=== PATIENT | male | born 1945 | race Caucasian/White ===

== ENCOUNTER 2021-10-07 09:25 | Outpatient (CLI) | payer MEDICARE, OTHER, SELFPAY ==
--- NOTE | ~2021-10-07 | CT_ITS ---
EXAMINATION: CT abdomen pelvis wo con EXAM DATE: 10/07/2021 09:48 INDICATION: Gross hematuria. Urinary frequency, TECHNIQUE: Spiral CT of the abdomen and pelvis was performed without contrast. Axial, coronal and s agittal images of the abdomen and pelvis were reviewed. The dose-length product (DLP) for this exami [facility] was 1320.70 mGy-cm. The exposure was tailored according to patient size (auto mA exposure con trol), and iterative reconstruction (ASIR) was used as additional dose reduction technique. There is no prior study for comparison. FINDINGS: There is a right liver lobe mass anteriorly causing lobular contour distortion measuring ab out 4 cm; recommend liver MRI examination without and with contrast. Adrenal glands, pancreas, spleen are unremarkable. Gallbladder is unremarkable. No biliary obstruction. Several renal cysts, larges t on the left measuring 5 cm. There are 2 small exophytic right renal lesions which are hyperdense an d most likely hemorrhagic cysts but these can also be evaluated on the MRI exam. There is moderate p rostatomegaly. The bladder is unremarkable. There is no retroperitoneal or pelvic lymphadenopathy. There is mild scattered arteriosclerotic disease. There are no findings to suggest appendicitis. The stomach and small bowel are unremarkable. There is expected amount of colonic stool. No free intraperitoneal gas. Small pericardial effusion. Hea rt normal in size. The lung bases are unremarkable. There are no osteoblastic or osteolytic lesions identified. There is right hip replacement. IMPRESSION: 1. Right liver lobe 4 cm mass, differential diagnosis including both benign and malignant possibilit ies. Recommend abdomen MRI examination without and with contrast. 2. Small right renal lesions likely hemorrhagic cyst but solid mass not excludable. Could be evaluat ed with the same MRI. 3. Moderate prostatomegaly. Reviewed, dictated and finalized at location G. IMPRESSION: 1. Right liver lobe 4 cm mass, differential diagnosis including both benign an d malignant possibilities. Recommend abdomen MRI examination without and with c ontrast. 2. Small right renal lesions likely hemorrhagic cyst but solid mass not exclud able. Could be evaluated with the same MRI. 3. Moderate prostatomegaly.
== END 2021-10-07 09:26 | disposition home or self-care (01) ==
PROVIDERS: PCP Internal Medicine; Visit Provider Urology
DX: R31.0 Gross hematuria (principal); N40.0 Benign prostatic hyperplasia without lower urinary tract symptoms; R16.0 Hepatomegaly, not elsewhere classified
CPT/HCPCS: 74176

== ENCOUNTER 2021-10-23 10:17 | Outpatient (CLI) | payer MEDICARE, OTHER, SELFPAY ==
--- NOTE | ~2021-10-23 | MR_ITS ---
EXAMINATION: MR abdomen wo/w con DATE: 10/23/2021 12:48 INDICATION: Right renal neoplasm of uncertain behavior. TECHNIQUE: Magnetic resonance imaging (MRI) of the abdomen was performed without and with 20 mL Multi laney intravenous contrast. Sequences included coronal T2-weighted SS-FSE, coronal and axial FS 2D-F IESTA, axial STIR FSE, axial T2-weighted SS-FSE, axial T2-weighted FS SS-FSE, axial diffusion-weighte d SE, axial dual-echo T1-weighted FSPGR, and axial and coronal T1-weighted LAVA. Postcontrast axial T 1-weighted LAVA images were obtained in a time course. Postcontrast coronal T1-weighted LAVA images w ere obtained. COMPARISON: CT abdomen and pelvis dated 10/07/2021 FINDINGS: Heart size is normal. No pericardial or pleural effusion. Multiple T2 hyperintense nonenhancing hepat ic cysts, the largest at the dome of the liver measuring 6.7 x 5.0 x 6.0 cm. 4.4 x 2.7 cm hemangioma at the posterior margin of segment 6 of the liver demonstrating characteristic peripheral discontiguo us puddling of contrast isointense to the aorta which fills in on delayed imaging. Gallbladder, splee n, pancreas and bilateral adrenal glands are normal. There are multiple bilateral T2 hyperintense non enhancing renal cysts, the largest at the lower pole of the left kidney measuring 5.7 cm in maximal d iameter. There are 3 additional T2 hypointense, T1 hyperintense nonenhancing proteinaceous/hemorrhagi c cysts at the periphery of the right kidney measuring 8 mm, 5 mm and 3 mm. Visualized portions of th e bowels are unremarkable. No pathologically enlarged abdominal lymphadenopathy. Mild lumbar dextrocu rvature with severe and fibrofatty degenerative endplate changes. Metallic magnetic field artifact at the right hip consistent with prior total hip arthroplasty. Mild trabeculation of the bladder which could be related to chronic outlet obstruction from the incompletely visualized but enlarged prostate . IMPRESSION: 1. Multiple bilateral renal cysts including 3 subcentimeter proteinaceous/hemorrhagic cysts at the ri ght kidney including the 2 hyperdense lesions of concern on prior CT. 2. Multiple hepatic cysts as well as a 4.4 x 2.7 cm hemangioma at the posterior right hepatic lobe co rresponding to the lobular lesion of concern on prior CT. 3. Prostatomegaly. Reviewed, dictated and finalized at location B. IMPRESSION: 1. Multiple bilateral renal cysts including 3 subcentimeter proteinaceous/hemor rhagic cysts at the right kidney including the 2 hyperdense lesions of concern on prior CT. 2. Multiple hepatic cysts as well as a 4.4 x 2.7 cm hemangioma at the posterior right hepatic lobe corresponding to the lobular lesion of concern on prior CT. 3. Prostatomegaly.
[2021-10-23 10:54] LABS: Estimated Glomerular Filt Rate > 60
== END 2021-10-23 10:18 | disposition home or self-care (01) ==
PROVIDERS: PCP Internal Medicine; Visit Provider Urology
DX: N28.1 Cyst of kidney, acquired (principal); K76.89 Other specified diseases of liver; N40.0 Benign prostatic hyperplasia without lower urinary tract symptoms
CPT/HCPCS: 74183; A9577

== ENCOUNTER 2022-05-04 09:15 | Emergency (ER) | payer MEDICARE, OTHER, SELFPAY ==
[2022-05-04 09:28] VITALS: BP 148/73; PULSE 62; RESP 20; TEMP 36.7; O2SAT 96
--- NOTE | 2022-05-04 09:29 | ED.GENADULT ---
HPI - General Adult General Chief complaint: Unspecified Stated complaint: nasal pain Time Seen by Provider: 05/04/22 09:29 Mode of arrival: ambulatory Limitations: no limitations History of Present Illness HPI narrative: 76-year-old male presents concern for burning and itching on his nose and just inside of his nose. Reports it feels raw. He reports this has been going on for 4-5 weeks. He reports he is taking Zyrtec daily, using saline spray inside the nose and has started using Vaseline for comfort. He reports the Vaseline uses the symptoms slightly. He denies any epistaxis, sinus congestion, sinus drainage, sore throat, ear pain, cough, sneezing. He denies any swelling, tenderness, pain in or around the nose. He denies fever, body aches, chills, sweats. MD complaint: Nasal problem Related Data Home Medications Medication Instructions Recorded Confirmed meloxicam 15 mg tablet 15 mg PO DAILY 09/05/21 omega 6-bfa-uqk-fish oil 60 mg-90 1 cap PO DAILY 09/05/21 mg-500 mg capsule (Fish Oil) psyllium husk 3.4 gram/5.4 gram 1 tbsp PO DAILY 09/05/21 oral powder (Metamucil) vit C 250 mg-vit E 90 mg-zinc 40 1 tablet PO BID 03/20/22 mg-copper 1 na-lrggal-uaqkez capsule (PreserVision AREDS-2) finasteride 5 mg tablet mg 05/04/22 Allergies Allergy/AdvReac Type Severity Reaction Status Date / Time adhesive Allergy Mild Itching Verified 03/20/22 08:36 Review of Systems Review of Systems: CONSTITUTIONAL: Denies malaise, chills, sweats, or fever. EYES: Denies visual changes, redness, or discharge. ENT: Reports rhinorrhea, congestion, sinus pain, otalgia and sore throat. CARDIOVASCULAR: Denies chest pain, palpitations, or edema. RESPIRATORY: Reports cough. Denies dyspnea. GASTROINTESTINAL: Denies abdominal pain, nausea, vomiting, diarrhea SKIN: Reports redness, itchiness, raw skin on the nose and just inside the nose MUSCULOSKELETAL: Denies myalgia. NEUROLOGIC: Denies headache. All systems reviewed & are unremarkable except as noted in HPI and below PMFSH Past Medical History Medical History (Updated 05/04/22 @ 09:45 by Cortney Schafer NP) Allergies Anxiety Arthritis BPH (benign prostatic hyperplasia) Insomnia Surgical History Surgical History H/O spinal fusion History of right hip replacement Family History Family History Mother Thyroid disorder Social History Social History Smoking status: Never smoker Alcohol intake: former Substance use: never Additional occupation/education comments: [employer] Comments At time of signature, agree with nursing past medical, surgical, social and family history. There is no relevant family history pertinent to the presenting complaint Exam Narrative: GENERAL: Well-appearing, well-nourished, and in no acute distress. HEAD: Normocephalic, atraumatic. EYES: PERRLA, sclera clear, and EOMI. ENT: Nares clear, turbinates pink, no rhinorrhea or epistaxis. Mucous membranes moist. TM pearly jay with sharp light reflex bilaterally; no tragal tenderness. Oropharynx without erythema or lesions. Tonsils not enlarged and without exudate. NECK: Supple. No lymphadenopathy. CHEST: No respiratory distress. Clear to auscultation. No bony deformities, no asymmetry. Speaks in full sentences. HEART: Regular rate and rhythm. SKIN: Warm, dry. Mild erythema with excoriation noted on bilateral lower nares just inside the nares. No edema, induration, tenderness noted, no areas of fluctuation, no concern for soft tissue infection at this time NEURO: Alert and oriented x3. PSYCH: Normal mood and affect Course Course Emergency Course: Discussed possible causes of the symptoms with the patient. Given the extreme itchiness, Will try a course of antifungal cream. Advised the patient if his symptoms d
== END 2022-05-04 09:51 | disposition home or self-care (01) ==
PROVIDERS: Emergency Provider Nurse Practitioner; PCP Nurse Practitioner
DX: B35.8 Other dermatophytoses (principal); M19.90 Unspecified osteoarthritis, unspecified site; N40.0 Benign prostatic hyperplasia without lower urinary tract symptoms; Z96.641 Presence of right artificial hip joint
CPT/HCPCS: 99213; G0463

== ENCOUNTER 2022-06-08 12:17 | Outpatient (CLI) | payer MEDICARE, OTHER, SELFPAY ==
--- NOTE | ~2022-06-08 | US_ITS ---
US arterial ankle brachial ind INDICATION: Soft tissue disorders. Hypertension. TECHNIQUE: Segmental pressures and plethysmographic and Doppler waveforms of the brachial and lower e xtremity arteries were obtained. COMPARISON: None. FINDINGS: Right and left brachial artery pressures of 135 mm Hg and 135 mm Hg, respectively, are concordant (no rmal difference <= 30 mmHg). The right ankle-brachial index (MARIA VICTORIA) is 1.37 (normal >= 0.9-1.0). The right great toe-brachial index (TBI) is 0.59 (normal >= 0.60). The left MARIA VICTORIA is 1.33. The left TBI is 0.7. IMPRESSION: 1. Normal left ankle and toe brachial indices. 2: Normal right ankle-brachial index. Mildly decreased right toe brachial index, consistent with mild peripheral arterial disease.. Reviewed, dictated and finalized at location B. CT MAIL MANAGER IMPRESSION: 1. Normal left ankle and toe brachial indices. 2: Normal right ankle-brachial index. Mildly decreased right toe brachial index , consistent with mild peripheral arterial disease..
--- NOTE | 2022-06-08 12:31 | ECHO_ITS ---
Patient Info Name: Sid Dyson Age: 76 years : 1945 Gender: Male Ht: 72 in Wt: 220 lbs BSA: 2.27 m2 HR: 118 bpm BP: 141 / 75 mmHg Technical Quality: Good Exam Date: 06/08/2022 1:08 PM Exam Location: [facility] Patient Status: Outpatient Admit Date: 06/08/2022 Staff Ordering Physician: Robina John Equal Opportunity Assistant: Barbara Shah RDCS Attending Provider: Robina John Referring Physician: Dora MCMILLAN; Exam Type: CA echo doppler color flow Study Info Indications M79.89 - OTHER SOFT TISSUE DISORDERS Complete two-dimensional, color flow and Doppler transthoracic echocardiogram is performed. Summary 1. Complete two-dimensional, color flow and Doppler transthoracic echocardiogram is performed. 2. Left ventricular chamber dimension is normal. 3. Left ventricular systolic function is normal, estimated at 60-65%. 4. The left ventricular diastolic function is grade I diastolic dysfunction. 5. E/e' 8 is minimally elevated. 6. There is trace mitral valve regurgitation. 7. There is trace tricuspid valve regurgitation. 8. No pulmonary hypertension, estimated pulmonary arterial systolic pressure is 31 mmHg. 9. There is trace pulmonic regurgitation. Left Ventricle E/e' 8 is minimally elevated. Left ventricular chamber dimension is normal. Left ventricular systolic function is normal, estimated at 60-65%. The left ventricular diastolic function is grade I diastolic dysfunction. Right Ventricle Right ventricular chamber dimension is normal. Right ventricular systolic function is normal. Left Atria Left atrial chamber dimension is normal. Right Atria Right atrial chamber dimension is normal. Aortic Valve The aortic valve is trileaflet. There is no aortic valve stenosis. There is no aortic valve regurgitation. Pulmonic Valve There is trace pulmonic regurgitation. Mitral Valve There is no mitral valve stenosis. There is trace mitral valve regurgitation. Tricuspid Valve There is trace tricuspid valve regurgitation. No pulmonary hypertension, estimated pulmonary arterial systolic pressure is 31 mmHg. Pericardium/Pleural There is no pericardial effusion. Inferior Vena Cava Normal inferior vena cava with >50% collapse upon inspiration consistent with normal right atrial pressure, 5 mmHg. Aorta The aortic root size at the sinus of Valsalva is normal. Left Ventricular Outflow Tract Name Value Normal LVOT 2D LVOT Diameter 2.2 cm LVOT Doppler LVOT Peak Gradient 5 mmHg LVOT Mean Gradient 3 mmHg LVOT VTI 22 cm LVOT Stroke Volume 87 ml LVOT CO 18.4 l/min LVOT CI 8.1 l/min/m2 Pulmonic Valve Name Value Normal PV Doppler
== END 2022-06-08 12:18 | disposition home or self-care (01) ==
PROVIDERS: PCP Internal Medicine; Visit Provider Clinical Nurse Specialist
DX: Z01.818 Encounter for other preprocedural examination (principal); I10 Essential (primary) hypertension; M79.89 Other specified soft tissue disorders
CPT/HCPCS: 93306; 93922

== ENCOUNTER 2022-08-06 13:07 | Emergency (ER) | payer MEDICARE, OTHER, SELFPAY ==
[2022-08-06 13:36] VITALS: BP 141/80; PULSE 70; RESP 16; TEMP 36.9; O2SAT 97
--- NOTE | 2022-08-06 14:16 | ED.URI ---
HPI - URI/Sore Throat General Chief Complaint: Upper Respiratory Infection Stated Complaint: COUGH/HEADACHE/CONGESTION Time Seen by Provider: 08/06/22 13:40 Source: patient Mode of arrival: ambulatory Limitations: no limitations History of Present Illness HPI Narrative: Sid is a 76-year-old male patient presenting to the clinic today with complaints of cough, headache, and nasal congestion x2 days. He denies any fever but states he has had some slight chills. He is concerned that he may have an infection. MD elicited complaint: sore throat and nasal congestion Related Data Home Medications Medication Instructions Recorded Confirmed meloxicam 15 mg tablet 15 mg PO DAILY 09/05/21 omega 7-tkt-vhp-fish oil 60 mg-90 1 cap PO DAILY 09/05/21 mg-500 mg capsule (Fish Oil) psyllium husk 3.4 gram/5.4 gram 1 tbsp PO DAILY 09/05/21 oral powder (Metamucil) vit C 250 mg-vit E 90 mg-zinc 40 1 tablet PO BID 03/20/22 mg-copper 1 ua-zmgaqy-wzqzmu capsule (PreserVision AREDS-2) finasteride 5 mg tablet mg 05/04/22 Allergies Allergy/AdvReac Type Severity Reaction Status Date / Time adhesive Allergy Mild Itching Verified 06/05/22 08:54 Review of Systems Review of Systems: Pertinent positives per HPI. Patient denies any fever, rash, visual changes, dizziness, shortness of breath, chest pain, palpitations, nausea, vomiting, diarrhea, constipation, abdominal pain, or any urinary issues. PMFSH Past Medical History Medical History Allergies Anxiety Arthritis BPH (benign prostatic hyperplasia) Insomnia Surgical History Surgical History H/O spinal fusion History of right hip replacement Family History Family History Mother Thyroid disorder Social History Social History Smoking status: Never smoker Alcohol intake: former Substance use: never Lack of Transportation: No Lack of Food: Never True Current Housing: I Have Housing Concerned About Future Housing: No Difficulty Paying Gas/Electric Bills: No Difficulty Paying for Meds: No Currently Unemployed: No Education: Bachelor's Degree Difficulty w/ Childcare or Family Care: No Additional occupation/education comments: [employer] Comments At the time of my signature, I reviewed and agree with the nursing past medical, surgical, social, and family history. There is no relevant family history pertinent to the patient complaint. Exam Narrative: General: Well-developed, well nourished, in no apparent distress Head: Normocephalic, atraumatic Eyes: Pupils equally round and reactive to light bilaterally, EOM intact, sclera and conjunctive clear, no discharge, lids normal Ears: TMs intact and clear, ear canals clear, no drainage, grossly hearing normal. Nose: Nares patent, clear nasal discharge, mild inflammation, no sinus tenderness. Mouth: Oral pharynx without lesions or masses, good dentition, MMM. Postnasal drip Neck: Supple, trachea midline, no enlargement of anterior or posterior cervical nodes, no thyroid masses or goiter palpable. Cardio: Regular rate and rhythm, s1 and s2 normal, no murmur appreciated. Resp: Clear to auscultation bilaterally, no rhonchi, rales, wheezing or rubs Course Course Emergency Course: Portions of this record may have been created with voice recognition software. Level of Care: Express Care Visit Vital Signs Vital signs: Vital Signs Temperature 36.9 C 08/06/22 13:36 Pulse Rate 70 08/06/22 13:36 Respiratory Rate 16 08/06/22 13:36 Blood Pressure 141/80 H 08/06/22 13:36 Pulse Oximetry 97 08/06/22 13:36 Oxygen Delivery Room Air 08/06/22 13:36 Temperature 36.9 C 08/06/22 13:36 Pulse Rate 70 08/06/22 13:36 Respiratory R
== END 2022-08-06 14:26 | disposition home or self-care (01) ==
PROVIDERS: Emergency Provider Nurse Practitioner Family; PCP Nurse Practitioner
DX: J02.9 Acute pharyngitis, unspecified (principal); B34.9 Viral infection, unspecified; Z20.822 Contact with and (suspected) exposure to COVID-19; M19.90 Unspecified osteoarthritis, unspecified site; N40.0 Benign prostatic hyperplasia without lower urinary tract symptoms; Z96.641 Presence of right artificial hip joint
CPT/HCPCS: 87426; 87804; 99213; C9803; G0463

== ENCOUNTER 2022-09-03 09:00 | Outpatient (RCR) | payer MEDICARE, OTHER, SELFPAY ==
--- NOTE | 2022-07-08 11:17 | PTOPEVAL1 ---
Assessment and note entered by Denisse Richardson, PT, DPT Evaluation Information Assessment Status Evaluation Diagnosis R TKA Onset 06/15/22 Subjective Information Pt is 3 weeks s/p R TKA. He has completed 2 weeks of home health and was last seen on 07/02/22. He currently reports well controlled pain with 3-4/10 at its worst. He is currently ambulating with a cane. His goals are to walk without deviations, ride a bike, garden, and keep up with his grandkids. Reported Pain Level Pain Score 2: Self Report Assessment PT Clinical Summary Sid is a 76 y/o male who presents to therapy today following a R TKA on 06/15/22. Today he demonstrates active knee flexion to 92 deg and is lacking 5 deg from terminal knee extension. He demonstrates minor gait deviations with lack of terminal knee extension, excessive hip drop moshe R> L, and a flexed posture. Skilled physical therapy services are indicated to progress ROM and strength, to improve functional mobility, and to promote a return to baseline function. Plan of Care Interventions Electrical Stimulation,Gait Training,Hot Pack/Cold Pack,Manual Therapy,Neuro Re-education,Patient/ Caregiver Educati,Therapeutic Activities, Therapeutic Exercise PT Services Indicated Yes Treatment Frequency and 2x/wk for 8 wks Duration These treatments will address the objective and functional deficits as defined above. The patient will be advanced safely and appropriately in order for the patient to progress towards his/her prior level of function. Additional exercises will be introduced and as well as a comprehensive home exercise program upon discharge, if needed, ?to ensure carryover of functional gains achieved in the clinic. This treatment plan has been reviewed and agreement upon by the patient.
--- NOTE | 2022-07-23 16:31 | BUPTOPEVAL1 ---
Assessment and note entered by Garima Joel, PT Assessment Status Progress Report Diagnosis R TKA Onset 06/15/22 Subjective Information Pt reports feeling 50% improved overall. Still can 't walk evenly , uses a cane in community, and is still tight and swollen. Worst pin level has been up to a 4/10. Reports hasn't had to take a pain pill in 48 hours Reported Pain Level Pain Score 1: Self Report Pain Score 2: Self Report Assessment PT Clinical Summary Pt reports feeling 50% improved overall with minimal pain. States has not had to take a pain pill in last two days. Demo's improved AROM and PROM of knee compared to evaluation, decreased Trendelenburg, improved gait without AD. Cont to demo decreased hip ROM RLE, overall knee flexion throughout gait cycle, cont mild left Trendelenburg, mild decreased AROM/PROM right knee. Pt reports he feels he can't walk evenly and would benefit from continued therapy to continue improvement. Plan of Care Interventions Electrical Stimulation,Gait Training,Hot Pack/Cold Pack,Manual Therapy,Neuro Re-education,Patient/ Caregiver Educati,Therapeutic Activities, Therapeutic Exercise Other Interventions Cont original POC PT Services Indicated Yes Treatment Frequency and 2x weekly x weeks Duration These treatments will address the objective and functional deficits as defined above. The patient will be advanced safely and appropriately in order for the patient to progress towards his/her prior level of function. Additional exercises will be introduced and as well as a comprehensive home exercise program upon discharge, if needed, ?to ensure carryover of functional gains achieved in the clinic. This treatment plan has been reviewed and agreement upon by the patient.
--- NOTE | 2022-08-17 07:49 | PCPTNOTE ---
Patient called & cancelled scheduled appointment this date due to inclement weather.
--- NOTE | 2022-09-03 10:08 | PTOPDC ---
Assessment and note entered by Garima Joel, PT Assessment Status Discharge Diagnosis R TKA Onset 06/15/22 Subjective Information Pt reports feeling stronger, 70-80% improved. Still has stillness hamstring and outside of leg. Reported Pain Level Pain Score 3: Self Report Assessment PT Clinical Summary Pt has met all therapy goals with exception of active ROM knee extension lacking very minimally secondary to tightness. Demo's very functional gait, transfers, strength, and range. Reports pain at worst 3/10 and at best 0/10. Reports 70-80% improved overall with largest complaint being related to walking is off (leg length discrepancy likely). Pt is independent in home program, has been educated on patterns ans strengthening related to gait which he will be able to continue independently as well. Thus pt is being discharged from skilled therapy services for meeting his goals.
== END 2022-09-03 12:49 | disposition home or self-care (01) ==
LOC: ANHGOSHPT 09:00
PROVIDERS: PCP Internal Medicine
DX: Z47.1 Aftercare following joint replacement surgery (principal); Z96.651 Presence of right artificial knee joint
CPT/HCPCS: 97110; 97112; 97116; 97140; 97161; 97530

== ENCOUNTER 2022-10-12 00:01 | Day surgery (SDC) | payer MEDICARE, OTHER, SELFPAY ==
[2022-09-28 14:30] VITALS: BMI 29.9
[2022-10-12 07:26] VITALS: BP 133/70; PULSE 60; RESP 18; TEMP 36.4; O2SAT 96
[2022-10-12] MEDS: LACTATED RINGERS 1,000 ML 150 ML IV CONT (07:41)
[2022-10-12] MEDS: AMPICILLIN 2 GM/NS 100 ML 2 GM/100 ML BAG IVPB (07:42)
--- NOTE | 2022-10-12 08:01 | WPDANESEPPF ---
Anes - Initial Pre Proc Eval Procedure: Operation Date: 10/12/22 08:30 Proposed Procedures p Screening Colonoscopy - Reese Winston MD Date/Time: 10/12/22 08:01 Surgeon: Reese Winston MD Pre Op Diagnosis: neoplasm screening Patient Data Age: 77 Gender: M Height: 1.83 m Weight: 97.2 kg Last Vital Signs Temp 36.4 C 10/12/22 07:26 Pulse 60 10/12/22 07:26 Resp 18 10/12/22 07:26 BP 133/70 10/12/22 07:26 Pulse Ox 96 10/12/22 07:26 O2 Del Method Room Air 10/12/22 07:26 Allergies Allergy/AdvReac Type Severity Reaction Status Date / Time adhesive Allergy Mild Itching Verified 10/12/22 07:24 Home Medications Medication Instructions Recorded Confirmed Type escitalopram oxalate 10 mg tablet 10 mg PO DAILY #90 tabs 02/12/22 09/28/22 Rx vit C 250 mg-vit E 90 mg-zinc 40 1 tablet PO BID 03/20/22 09/28/22 History mg-copper 1 ka-clmhaz-gggwjp capsule (PreserVision AREDS-2) finasteride 5 mg tablet 5 mg PO DAILY 05/04/22 09/28/22 History trazodone 50 mg tablet 50 mg PO QHS PRN sleep #90 tabs 09/02/22 09/28/22 Rx cetirizine 10 mg tablet (Zyrtec) 10 mg PO DAILY 09/28/22 09/28/22 History losartan 50 mg tablet 50 mg PO DAILY 09/28/22 09/28/22 History meloxicam 7.5 mg tablet 7.5 mg PO DAILY 09/28/22 09/28/22 History sennosides 8.6 mg-docusate sodium 1 tablet PO BID 09/28/22 09/28/22 History 50 mg tablet (Senexon-S) Patient hx anesthesia problems: none Family hx anesthesia problems: none Results Review: All pre-operative results and documents have been reviewed as part of the pre-operative evaluation. [facility] Past Medical History Medical History Allergies Anxiety Arthritis BPH (benign prostatic hyperplasia) Insomnia Surgical History Surgical History H/O spinal fusion History of right hip replacement Family History Family History Mother Thyroid disorder Social History Social History Smoking status: Never smoker Alcohol intake: current Alcohol use details: once monthly Substance use: never Substance use type: does not use Lack of Transportation: No Lack of Food: Never True Current Housing: I Have Housing Concerned About Future Housing: No Difficulty Paying Gas/Electric Bills: No Difficulty Paying for Meds: No Currently Unemployed: No Education: Bachelor's Degree Difficulty w/ Childcare or Family Care: No Living arrangements: with family Occupation/Education: retired Additional occupation/education comments: [employer] Spiritual care concerns: No Anes - Eval Final PreProcedure Day of Procedure 10/12/22 08:01 Patient weight: overweight Heart: regular rate and rhythm Lungs: clear to auscultation and normal air movement Airway: Mallampati scale class II Neurological: alert and oriented Last oral intake: >/= 8 hours ASA classification: II Emergent: no Anesthetic plan: proceed Anesthesia type and monitoring: general GIVS Results Review: All pre-operative results and documents have been reviewed as part of the pre-operative evaluation. Informed Consent: The patient's anesthetic plan and its attendant risks and benefits were discussed with the patient/family/POA. Questions were solicited and answers provided to the satisfaction of the patient/family/POA.
--- NOTE | 2022-10-12 08:18 | PM.HPGS ---
History of Present Illness History of Present Illness Consent: Risks, benefits, and alternatives have been discussed and questions answered. Patient agrees to proceed with procedure. Chief complaint: neoplasm screening Narrative: Sid Dyson is a 77 year old male Presents for screening colonoscopy. Patient's current weight appetite and bowel movements are normal. Patient denies abdominal pain. He has had no bleeding. Family history noncontributory. Patient states he had a previous exam perhaps 7 years ago. The results of this not immediately available. Family history noncontributory for Review of Systems Review of Systems: physical exam reveals patient to be alert. Vital signs stable. HEENT exam is unremarkable. Patient is anicteric. Lungs are clear to auscultation and percussion. Heart is without murmur or extra sounds. Abdomen bowel sounds are present soft nontender with no organomegaly. Digital external rectal exam is normal. [facility] Past Medical History Medical History Allergies Anxiety Arthritis BPH (benign prostatic hyperplasia) Insomnia Surgical History Surgical History H/O spinal fusion History of right hip replacement Family History Family History Mother Thyroid disorder Social History Social History Smoking status: Never smoker Alcohol intake: current Alcohol use details: once monthly Substance use: never Substance use type: does not use Lack of Transportation: No Lack of Food: Never True Current Housing: I Have Housing Concerned About Future Housing: No Difficulty Paying Gas/Electric Bills: No Difficulty Paying for Meds: No Currently Unemployed: No Education: Bachelor's Degree Difficulty w/ Childcare or Family Care: No Living arrangements: with family Occupation/Education: retired 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 Spiritual care concerns: No Meds Home Medications and Allergies Home Medications Medication Instructions Recorded Confirmed Type escitalopram oxalate 10 mg tablet 10 mg PO DAILY #90 tabs 02/12/22 09/28/22 Rx vit C 250 mg-vit E 90 mg-zinc 40 1 tablet PO BID 03/20/22 09/28/22 History mg-copper 1 [id number] capsule (PreserVision AREDS-2) finasteride 5 mg tablet 5 mg PO DAILY 05/04/22 09/28/22 History trazodone 50 mg tablet 50 mg PO QHS PRN sleep #90 tabs 09/02/22 09/28/22 Rx cetirizine 10 mg tablet (Zyrtec) 10 mg PO DAILY 09/28/22 09/28/22 History losartan 50 mg tablet 50 mg PO DAILY 09/28/22 09/28/22 History meloxicam 7.5 mg tablet 7.5 mg PO DAILY 09/28/22 09/28/22 History sennosides 8.6 mg-docusate sodium 1 tablet PO BID 09/28/22 09/28/22 History 50 mg tablet (Senexon-S) Allergies Allergy/AdvReac Type Severity Reaction Status Date / Time adhesive Allergy Mild Itching Verified 10/12/22 07:24 Vital Signs Vital Signs - 24 hr 10/12/22 07:26 Temperature 97.6 F Pulse Rate 60 Respiratory Rate 18 Blood Pressure 133/70 Pulse Oximetry 96 Oxygen Delivery Room Air Assessment and Plan Assessment and plan (1) Screening for colon cancer: Code(s): Z12.11 - Encounter for screening for malignant neoplasm of colon Status: Acute Assessment and Plan: Patient presents today for screening colonoscopy. Further recommendations may be given after endoscopy.
[2022-10-12 08:46] VITALS: BP 112/61; PULSE 61; RESP 15; O2SAT 92
[2022-10-12 08:56] VITALS: BP 117/74; PULSE 57; RESP 20; O2SAT 97
[2022-10-12 09:06] VITALS: BP 123/82; PULSE 62; RESP 18; O2SAT 97
== END 2022-10-12 09:16 | disposition home or self-care (01) ==
PROVIDERS: PCP Nurse Practitioner; Visit Provider Internal Medicine Gastroenterology
PROC: 0DJD8ZZ Inspection of Lower Intestinal Tract, Via Natural or Artificial Opening Endoscopic (ICD-10-PCS; CPT 45378; principal; 2022-10-12 08:30)
DX: Z12.11 Encounter for screening for malignant neoplasm of colon (principal); K64.8 Other hemorrhoids; N40.0 Benign prostatic hyperplasia without lower urinary tract symptoms; F41.9 Anxiety disorder, unspecified; Z98.1 Arthrodesis status
CPT/HCPCS: G0121; J0290; J2704; J7120

== ENCOUNTER 2022-11-11 09:52 | Emergency (ER) | payer MEDICARE, OTHER, SELFPAY ==
--- NOTE | 2022-11-11 09:58 | ED.URI ---
HPI - URI/Sore Throat General Chief Complaint: Upper Respiratory Infection Stated Complaint: RED EYES/SNEEZING/RUNNY NOSE/CONGESTION Source: patient and RN notes reviewed History of Present Illness HPI Narrative: 77 yo M presents to urgent care with at side. Pt states his seasonal allergies have been horrible lately and he doesn't know what else to do. Pt states his nose is instantly congested and running when he gets up in the morning and he is sneezing all day. Pt states his symptoms worsen when he is outside. Pt reports as soon as he lies down at night, his symptoms are gone. Denies any ear pain, chest pain, SOB, vomiting, sore throat, or coughing. Pt has been taking a Claritin for the last few days without relief. Related Data Home Medications Medication Instructions Recorded Confirmed finasteride 5 mg tablet 5 mg PO DAILY 05/04/22 11/11/22 losartan 50 mg tablet 50 mg PO DAILY 09/28/22 11/11/22 Allergies Allergy/AdvReac Type Severity Reaction Status Date / Time adhesive Allergy Mild Itching Verified 11/11/22 10:00 Review of Systems Review of Systems: Pertinent positives and pertinent negatives per HPI. [facility] Past Medical History Medical History Allergies Anxiety Arthritis BPH (benign prostatic hyperplasia) Insomnia Surgical History Surgical History H/O spinal fusion History of right hip replacement Family History Family History Mother Thyroid disorder Social History Social History Smoking status: Never smoker Alcohol intake: current Alcohol use details: once monthly Substance use: never Substance use type: does not use Lack of Transportation: No Lack of Food: Never True Current Housing: I Have Housing Concerned About Future Housing: No Difficulty Paying Gas/Electric Bills: No Difficulty Paying for Meds: No Currently Unemployed: No Education: Bachelor's Degree Difficulty w/ Childcare or Family Care: No Living arrangements: with family Occupation/Education: retired Additional occupation/education comments: [employer] Spiritual care concerns: No Comments At the time of my signature, I reviewed and agree with the nursing past medical, surgical, social, and family history. There is no relevant family history pertinent to the patient complaint. Exam Narrative: GENERAL: This is a well-nourished, well-developed patient, in no apparent distress. HEAD: normocephalic, atraumatic. EYES: Sclera clear/white. Vision is grossly intact. EARS: External ears normal, auditory canals clear and without drainage, TMs normal without perforation. Hearing grossly intact. NOSE: Clear, thin discharge and congestion THROAT: Mucous membranes moist, posterior pharynx clear. NECK: Neck supple, non-tender without lymphadenopathy, masses or thyromegaly. CARDIOVASCULAR: Regular rate and rhythm without murmurs, gallops, or rubs. RESPIRATORY: Clear to auscultation. Breath sounds equal bilaterally. No wheezes, rales, or rhonchi. SKIN: warm, intact with no suspicious lesions or rash, good texture and turgor. NEURO: awake, alert, and oriented to person, place and time. There were no obvious focal neurologic abnormalities. BACK: Nontender without deformity or crepitance. No flank tenderness. Course Course Level of Care: Express Care Visit Vital Signs Vital signs: Vital Signs Temperature 97.6 F 11/11/22 10:01 Pulse Rate 62 11/11/22 10:01 Respiratory Rate 16 11/11/22 10:01 Blood Pressure 153/80 H 11/11/22 10:01 Pulse Oximetry 97 11/11/22 10:01 Temperature 97.6 F 11/11/22 10:02 Pulse Rate 62 11/11/22 10:02 Respiratory Rate 16 11/11/22 10:02 Blood Pressure 153/80 H 11/11/22 10:02 Pulse Oxime
[2022-11-11 10:01] VITALS: BP 153/80; PULSE 62; RESP 16; TEMP 36.4; O2SAT 97
[2022-11-11 10:02] VITALS: BP 153/80; PULSE 62; RESP 16; TEMP 36.4; O2SAT 97
== END 2022-11-11 10:20 | disposition home or self-care (01) ==
PROVIDERS: Emergency Provider Nurse Practitioner Family; PCP Nurse Practitioner
DX: J30.2 Other seasonal allergic rhinitis (principal); M19.90 Unspecified osteoarthritis, unspecified site; N40.0 Benign prostatic hyperplasia without lower urinary tract symptoms; Z96.641 Presence of right artificial hip joint
CPT/HCPCS: 99213; G0463

== ENCOUNTER 2023-07-20 08:16 | Emergency (ER) | payer MEDICARE, OTHER, SELFPAY ==
[2023-07-20 08:28] VITALS: BP 129/76; PULSE 60; RESP 18; TEMP 36.1; O2SAT 96
--- NOTE | 2023-07-20 08:36 | ED.URI ---
HPI - URI/Sore Throat General Chief Complaint: Upper Respiratory Infection Stated Complaint: Head Congestion Time Seen by Provider: 07/20/23 08:50 Source: patient and RN notes reviewed Mode of arrival: ambulatory Limitations: no limitations History of Present Illness HPI Narrative: 77-year-old male presents concern for 4 week history of sinus congestion, drainage, postnasal drainage, sneezing. Reports he has been using Zyrtec, sinus rinses without relief. He denies fever, aches, chills, sweats. Denies cough and chest congestion. MD elicited complaint: rhinorrhea and nasal congestion Related Data Home Medications Medication Instructions Recorded Confirmed finasteride 5 mg tablet 5 mg PO DAILY 05/04/22 07/20/23 cetirizine 10 mg tablet (Zyrtec) 10 mg PO DAILY 03/23/23 07/20/23 mv-mn-folic 200 mcg-vit K 15 2 cap PO DAILY 03/23/23 07/20/23 mcg-lutein 5 mg-zeaxanthin 1 mg capsule (PreserVision AREDS 2 Plus Multivit) psyllium husk (with sugar) 2 gram 2 wafer PO DAILY 03/23/23 07/20/23 oral wafer (Metamucil Fiber Thin) Allergies Allergy/AdvReac Type Severity Reaction Status Date / Time adhesive Allergy Mild Itching Verified 07/20/23 08:40 Review of Systems Review of Systems: CONSTITUTIONAL: Denies malaise, chills, sweats, or fever. EYES: Denies visual changes, redness, or discharge. ENT: Reports rhinorrhea, congestion, sinus pain CARDIOVASCULAR: Denies chest pain, palpitations, or edema. RESPIRATORY: Denies cough. Denies dyspnea. GASTROINTESTINAL: Denies abdominal pain, nausea, vomiting, diarrhea SKIN: Denies rash or itching. MUSCULOSKELETAL: Denies myalgia. NEUROLOGIC: Denies headache. All systems reviewed & are unremarkable except as noted in HPI and below PMFSH Past Medical History Medical History (Updated 07/20/23 @ 08:57 by Cortney Schafer NP) Allergies Anxiety Arthritis BPH (benign prostatic hyperplasia) Insomnia Surgical History Surgical History (Updated 03/23/23 @ 10:22 by Shannen Thornton CMA) H/O spinal fusion History of right hip replacement History of right knee joint replacement Family History Family History Mother Thyroid disorder Social History Social History Smoking status: Never smoker Alcohol intake: current Alcohol use details: once monthly Substance use: never Substance use type: does not use Lack of Transportation: No Lack of Food: Never True Current Housing: I Have Housing Concerned About Future Housing: No Difficulty Paying Gas/Electric Bills: No Difficulty Paying for Meds: No Currently Unemployed: No Education: Bachelor's Degree Difficulty w/ Childcare or Family Care: No Living arrangements: with family Occupation/Education: retired Additional occupation/education comments: [employer] Spiritual care concerns: No Comments At time of signature, agree with nursing past medical, surgical, social and family history. There is no relevant family history pertinent to the presenting complaint Exam Narrative: GENERAL: Well-appearing, well-nourished, and in no acute distress. HEAD: Normocephalic EYES: PERRLA, conjunctivae clear ENT: Nares clear, turbinates edematous and erythematous. Mucous membranes moist. TM pearly jay with dull light reflex bilaterally; no tragal tenderness. Oropharynx not erythematous without lesions. Tonsils not enlarged and without exudate, no drooling, no hoarseness, no trismus, uvula midline. NECK: Supple. No lymphadenopathy CHEST: Clear to auscultation, breath sounds equal. No wheezing, rhonchi, rales, or stridor. No respiratory distress, speaks in full sentences. HEART: Regular rate and rhythm. No murmur heard. SKIN: Warm, dry, no rash. NEURO: Alert and oriented x3. PSYCH: Normal mood and affect Course Course Emergency Course: Patient is aware of diagnosis, understands and agree
== END 2023-07-20 09:06 | disposition home or self-care (01) ==
PROVIDERS: Emergency Provider Nurse Practitioner; PCP Nurse Practitioner
DX: J01.90 Acute sinusitis, unspecified (principal); B96.89 Other specified bacterial agents as the cause of diseases classified elsewhere; Z96.651 Presence of right artificial knee joint; Z96.641 Presence of right artificial hip joint
CPT/HCPCS: 99213; G0463

== ENCOUNTER 2024-06-19 08:15 | Outpatient (CLI) | payer MEDICARE, OTHER, SELFPAY ==
[2024-07-10 16:10] VITALS: BMI 31.1
--- NOTE | 2024-07-10 16:10 | P.SLEEP_ITS ---
Sleep Study - Home Unattended Date of Study: 06/19/24 Ordering Provider: Tanya Harris NP Interpreting Provider: Emani Selby, DO Home Sleep Study Type: Watch PAT Height: 1.83 m Weight: 104.326 kg Body Mass Index: 31.1 Neck Circumference (inches): 16 [place]: 16 Reason for Sleep Study Snoring, daytime hypersomnia Sleep History The patient is a 78-year-old male had a sleep study ordered by his primary care for evaluation of sleep apnea. The patient denies awakening from sleep short of breath. He rarely awakens at night with heartburn, belching or cough. He frequently snores and it is constantly loud enough that others complain. He occasionally has trouble sleeping when he has a cold. He denies waking up gasping for air throughout the night. He rarely has breathing problems at night observed by himself or others. He denies sweating excessively at night. He rarely has heart palpitations or irregular heartbeats during the night. He frequently falls asleep during the day but rarely while driving. He denies sleep paralysis and cataplexy. He rarely has trouble at school or work due to sleepiness. He occasionally experiences vivid dreamlike scenes upon awakening or falling asleep. He rarely feels afraid of going to sleep. He frequently has nightmares and constantly remembers his dreams. He rarely has thoughts racing through his mind. He rarely feels sad or depressed. He frequently has anxiety. He rarely has muscular tension. He rarely notices parts of his body jerk. He rarely kicks during the night. He occasionally has crawling and aching feelings in his legs but rarely has leg pain during the night. He occasionally grinds his teeth during sleep but rarely awakens with morning jaw pain. He is occasionally bothered by pain during the day but rarely awakened by pain during the night. He frequently wakes up feeling stiff in the morning. He frequently wakes up with sore or achy muscles. He occasionally wakes up with pain in the neck, spine and other joints. He goes to bed at 9:00 p.m. on both weekdays and weekends. It takes him 10 minutes to fall asleep. He wakes up 3-4 times throughout the night to urinate and is able to fall back asleep within a few minutes. He wakes up between 5-6 a.m. on both weekdays and weekends. He typically gets 7-8 hours of sleep per night. He does not stay in bed after waking up in the morning. He currently lives with his . He denies consuming any caffeinated beverages within 2 hours of bedtime. He denies engaging in physical exercise before bedtime. He denies reading or watching television before falling asleep. He will take naps in afternoon or the evening And they are refreshing. He consumes 3 cups of coffee every morning. He denies tobacco, alcohol and recreational drug use. [facility] Past Medical History Medical History Anxiety Insomnia BPH (benign prostatic hyperplasia) Arthritis Allergies Surgical History Surgical History History of right knee joint replacement H/O spinal fusion History of right hip replacement Family History Family History Mother Thyroid disorder Social History Social History Smoking status: Never smoker Alcohol intake: current Alcohol use details: once monthly Substance use: never Substance use type: does not use Lack of Transportation: No Lack of Food: Never True Current Housing: I Have Housing Concerned About Future Housing: No Difficulty Paying Gas/Electric Bills: No Difficulty Paying for Meds: No Currently Unemployed: No Education: Bachelor's Degree Difficulty w/ Childcare or Family Care: No Living arrangements: with family Occupation/Education: retired 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 Spiritual care concerns: No Medications Home Medications ?Medication ?Instructions ?Recorded ?Confirmed ?Type cetirizine 10 mg tablet (Zyrtec) 10 mg PO DAILY 03/23/23 04/04/24 History mv-mn-folic 200 mcg-vit K 15 2 cap PO DAILY 03/23/23 04/04/24 History mcg-lutein 5 mg-zeaxanthin 1 mg capsule (PreserVision AREDS 2 Plus Multivit) psyllium husk (with sugar) 2 gram 2 wafer PO DAILY 03/23/23 04/04/24 History oral wafer (Metamucil Fiber Thin) losartan 50 mg tablet 50 mg PO DAILY #90 tabs 04/18/24 Rx meloxicam 15 mg tablet 15 mg PO DAILY PRN arthritis #90 05/16/24 Rx tabs escitalopram oxalate 10 mg tablet 10 mg PO DAILY #90 tabs 06/08/24 Rx Sleep Procedure The sleep study was completed using WatchPAT a technically adequate device with seven channels: peripheral arterial tone, actigraphy, body position, snore, respiratory movement, pulse oximetry, sleep staging, and heart rate. Prior to using the device, the patient received verbal and written instructions for its application and was provided with the help desk phone number for additional telephonic instruction with 24-hour availability of qualified personnel to answer questions. The study was scored using CMS guidelines. Sleep Architecture The total recording time is 8 hrs, 31 min. The total sleep time is 7 hrs, 11 min. Sleep latency is 16 minutes. REM latency is 70 minutes. The patient had 7 episodes of waking. Sleep architecture shows 20.8% deep sleep, 52.0% light sleep, and (as % Total Sleep Time) showed NREM (Light 52.0%; Deep 20.8%), and a 27.2% stage REM. The patient spent 68.0% of total sleep time in the supine position. Sleep efficiency was 84.34. Respiratory Analysis The overall AHI (pAHI 4%:) is 27.2. The central AHI is 2.4. The AHI was 22.8 in NREM and 39.2 in REM sleep. The AHI was 38.8 in Supine and 2.6 in Non-supine sleep. Percent of Jose Gee respirations is 0.0. Oximetry Data The oxygen desaturation index (ANTHONY 4%:) is 27.0. The mean saturation is 91%, and the lowest saturation is 81%. Time spent with saturation < 88% is 15.3 minutes. Snoring Profile Snoring average intensity is 45 dB. The patient snored above 45 decibels for 145.8 minutes, 33.8% of sleep time. Cardiac Profile The average pulse rate is 63 beats per minutes. The lowest pulse rate is 49 bpm. The highest pulse rate reported is 101 bpm. Atrial fibrillation was not detected. Premature beats occur <0.1 per minute. Assessment and Plan Assessment and Plan (1) MAURY (obstructive sleep apnea): Code(s): G47.33 - Obstructive sleep apnea (adult) (pediatric) Status: Acute Assessment and Plan: The patient had an overall AHI of 27.2 with desaturation down to 81%. This is consistent with moderate sleep apnea. I recommend that the patient have a CPAP Titration study with the use of a hypnotic (Lunesta 203 mg or Ambien 5-10 mg) to ensure we obtain enough sleep data and find an optimal pressure. Data The data obtained during this sleep study is adequate for interpretation. Certification This sleep study has been reviewed by a board certified sleep medicine ph ysician.
== END 2024-06-20 12:50 | disposition home or self-care (01) ==
LOC: ANHCSM 08:16
PROVIDERS: PCP Internal Medicine; Visit Provider Nurse Practitioner
DX: G47.33 Obstructive sleep apnea (adult) (pediatric) (principal); G47.9 Sleep disorder, unspecified
CPT/HCPCS: 95800

== ENCOUNTER 2024-07-25 13:36 | Outpatient (CLI) | payer MEDICARE, SELFPAY ==
--- NOTE | 2024-08-16 19:19 | P.SLEEP_ITS ---
Sleep Study Date of Study: 07/25/24 Ordering Provider: Tanya Harris NP Interpreting Physician: Emani Selby DO Sleep Study Type: CPAP Titration Height: 1.83 m Weight: 102.058 kg Body Mass Index: 30.5 Neck Circumference (inches): 18 [place]: 16 Reason for Sleep Study Daytime hypersomnia Sleep History The patient is a 79-year-old male had a sleep study ordered by his primary care for evaluation of sleep apnea. The patient denies awakening from sleep short of breath. He rarely awakens at night with heartburn, belching or cough. He frequently snores and it is constantly loud enough that others complain. He occasionally has trouble sleeping when he has a cold. He denies waking up gasping for air throughout the night. He rarely has breathing problems at night observed by himself or others. He denies sweating excessively at night. He rarely has heart palpitations or irregular heartbeats during the night. He frequently falls asleep during the day but rarely while driving. He denies sleep paralysis and cataplexy. He rarely has trouble at school or work due to sleepiness. He occasionally experiences vivid dreamlike scenes upon awakening or falling asleep. He rarely feels afraid of going to sleep. He frequently has nightmares and constantly remembers his dreams. He rarely has thoughts racing through his mind. He rarely feels sad or depressed. He frequently has anxiety. He rarely has muscular tension. He rarely notices parts of his body jerk. He rarely kicks during the night. He occasionally has crawling and aching feelings in his legs but rarely has leg pain during the night. He occasionally grinds his teeth during sleep but rarely awakens with morning jaw pain. He is occasionally bothered by pain during the day but rarely awakened by pain during the night. He frequently wakes up feeling stiff in the morning. He frequently wakes up with sore or achy muscles. He occasionally wakes up with pain in the neck, spine and other joints. He goes to bed at 9:00 p.m. on both weekdays and weekends. It takes him 10 minutes to fall asleep. He wakes up 3-4 times throughout the night to urinate and is able to fall back asleep within a few minutes. He wakes up between 5-6 a.m. on both weekdays and weekends. He typically gets 7-8 hours of sleep per night. He does not stay in bed after waking up in the morning. He currently lives with his . He denies consuming any caffeinated beverages within 2 hours of bedtime. He denies engaging in physical exercise before bedtime. He denies reading or watching television before falling asleep. He will take naps in afternoon or the evening And they are refreshing. He consumes 3 cups of coffee every morning. He denies tobacco, alcohol and recreational drug use. [facility] Past Medical History Medical History Anxiety Insomnia BPH (benign prostatic hyperplasia) Arthritis Allergies Surgical History Surgical History History of right knee joint replacement H/O spinal fusion History of right hip replacement Family History Family History Mother Thyroid disorder Social History Social History Smoking status: Never smoker Alcohol intake: current Alcohol use details: once monthly Substance use: never Substance use type: does not use Lack of Transportation: No Lack of Food: Never True Current Housing: I Have Housing Concerned About Future Housing: No Difficulty Paying Gas/Electric Bills: No Difficulty Paying for Meds: No Currently Unemployed: No Education: Bachelor's Degree Difficulty w/ Childcare or Family Care: No Living arrangements: with family Occupation/Education: retired 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 Spiritual care concerns: No Medications Home Medications ?Medication ?Instructions ?Recorded ?Confirmed ?Type cetirizine 10 mg tablet (Zyrtec) 10 mg PO DAILY 03/23/23 04/04/24 History mv-mn-folic 200 mcg-vit K 15 2 cap PO DAILY 03/23/23 04/04/24 History mcg-lutein 5 mg-zeaxanthin 1 mg capsule (PreserVision AREDS 2 Plus Multivit) psyllium husk (with sugar) 2 gram 2 wafer PO DAILY 03/23/23 04/04/24 History oral wafer (Metamucil Fiber Thin) losartan 50 mg tablet 50 mg PO DAILY #90 tabs 04/18/24 Rx escitalopram oxalate 10 mg tablet 10 mg PO DAILY #90 tabs 06/08/24 Rx meloxicam 15 mg tablet See Rx Instructions .Route 08/07/24 Rx .COMPLEX #90 tabs Sleep Procedure A full night CPAP Titration using the [email or web address]enceLearning multi-channel system recorded the standard physiologic parameters including EEG, EOG, submentalis EMG, anterior tibialis EMG, EKG, body position, nasal and oral airflow using nasal pressure sensor and thermistor.? Respiratory parameters of chest and abdominal movements were recorded with Respiratory Inductance Plethysmography belts. Oxygen saturation was recorded by pulse oximetry. Video monitoring was also performed. Sleep stages, periodic limb movements, and EEG arousals were scored in 30 second epochs according to the criteria of the AASM Scoring Manual. The Apnea-Hypopnea Index was calculated using [facility] guidelines for definition of hypopnea with 4% O2 desaturations while scoring respiratory events. Sleep Architecture The total recording time was 492.5 minutes.? The total sleep time was 346.5 minutes. Sleep latency was 25.4 minutes. REM latency was 166.5 minutes. Sleep efficiency was 70.4%. The patient had 24 awakenings for an awakening index of 4.2. Wake after Sleep Onset time was 121.0 minutes. The patient spent 29.5 minutes, 8.5% of total sleep time in Stage N1. The patient spent 201.5 minutes, 58.2% in Stage N2. The patient spent 0.0 minutes, 0.0% in Stage N3. The patient spent 115.5 minutes, 33.3% in Stage REM. Respiratory Analysis The patient had 20 hypopneas and 4 central apneas for an overall Apnea Hypopnea Index of 4.2 events per hour. The REM Apnea Hypopnea Index was 3.6. The NREM Apnea Hypopnea Index was 4.4. The patient had a Central Apnea Hypopnea Index of 0.7. There was no evidence of Jose-Gee Respirations. The patient was started on CPAP 5 cm H2O with EPR of 2 and titrated to CPAP 11 cm EPR of 2 due to hypopneas. The patient was able to fall asleep starting on CPAP 5 cm H2O with EPR of 2. The patient was able to achieve REM sleep starting on CPAP 8 cm H2O with EPR of 2. The patient had an increase in hypopnea frequency when he switched from a lateral position to the supine position. On CPAP 9 cm H2O with EPR of 2, the patient spent 139.5 minutes in NREM and 65 mi nutes in REM with 2 central apneas and 22 hypopneas, resulting in an AHI of 7.0. The patient had a sleep efficiency of 85.7% on this pressure setting. Arousals There were 76 total arousals for an arousal index of 13.2. There were 25 spontaneous arousals for an index of 4.3. ?There were 15 arousals due to respiratory events for an index of 2.6. There were 32 arousals due to periodic limb movements for an index of 5.5.? There were 4 arousals due to isolated limb movements for an index of 0.7. Periodic Limb Movements The patient had 27 isolated limb movements with an index of 4.7. The patient had 486 periodic limb movements with index of 84.2, which is elevated (normal < 15). Patient had a total of 513 limb movements with a total limb movement index of 88.8. Oximetry Data The patient had an average oxygen saturation of 93.1% in sleep with a minimum oxygen saturation of 84.0% and a maximum oxygen saturation of 99.0%. The patient had 26 oxygen desaturations that were 4% or greater resulting in an Oxygen Desaturation Index of 4.5.? The patient spent 1.5 minutes, 0.3% of total sleep time with an oxygen saturation below 88%. Snoring Profile Mild snoring was present intermittently in the beginning of the study. Cardiac Profile The EKG showed normal sinus rhythm with occasional PVCs. The patient had an average pulse rate of 54.6 bpm with a minimum pulse rate of 48.0 bpm and a maximum pulse rate of 76.0 bpm. ? EEG Profile No signs of seizure activity seen. Assessment and Plan Assessment and Plan (1) MAURY (obstructive sleep apnea): Code(s): G47.33 - Obstructive sleep apnea (adult) (pediatric) Status: Acute Assessment and Plan: The patient was started on CPAP 5 cm H2O with EPR of 2 and titrated to CPAP 11 cm EPR of 2 due to hypopneas. The patient did develop more respiratory events in the supine position compared to a lateral position. I recommend that the patient be prescribed CPAP 9 cm H2O with EPR of 2, size medium Resmed AirTouch F20 full face mask, CPAP filters/tubing and heated humidity. This should be used with all episodes of sleep.? Compliance should be reviewed within 31-90 days of starting therapy for usage greater than 4 hours per night greater than 70% of the nights. The patient should be asked about symptoms such as?excessive daytime sleepiness, quality of sleep, decreased nocturia, increased?mental functioning such as memory, mood, and concentration. The patient had a significant number of limb movements during the study with the majority being periodic in nature. The patient's sleep history does not suggest Restless Leg Syndrome. I recommend that the patient have a serum ferritin drawn for evaluation of iron deficiency anemia. If the patient has a serum ferritin less than 75 ng/mL, I recommend starting a daily iron supplement and a Vitamin C supplement for better absorption. If the serum ferritin is greater than 75 ng/mL, I recommend starting a dopamine agonist and titrating the dose until symptoms resolve. There are nonpharmacological methods to treat limb movements including daily exercise, stretching calf muscles before bed, avoiding excessive amounts of caffeine and alcohol, vitamin B supplementation, magnesium lotion massaged into legs before bed, and use of a weighted blanket. Data The data obtained during this sleep study is adequate for interpretation. Certification This sleep study has been reviewed by a board certified sleep medicine physician.
[2024-08-17 16:08] VITALS: BMI 30.5
== END 2024-07-26 07:11 | disposition home or self-care (01) ==
PROVIDERS: PCP Internal Medicine; Visit Provider Nurse Practitioner
DX: G47.33 Obstructive sleep apnea (adult) (pediatric) (principal)
CPT/HCPCS: 95811

== ENCOUNTER 2025-05-11 08:47 | Outpatient (CLI) | payer MEDICARE, OTHER, SELFPAY ==
--- NOTE | ~2025-05-11 | CT_ITS ---
Exam: CT chest with contrast Clinical History: [R91.8 ] Comparison: [ CT abdomen and pelvis 10/07/2021]; MRI abdomen with and without contrast 10/23/2021 Technique: Multiple axial CT images of the chest with IV contrast. Sagittal and coronal reformatted images were obtained. FINDINGS: Lungs and pleura: [ Tracheobronchial tree is patent. No pneumothorax per no pleural effusion. No free air under the diaphragm.] Small to moderate-sized patchy and ground glass opacities in the mid and lower lungs. Mediastinum and pulmonary vickie: [ No mass or adenopathy.] Axillary/intramammary and supraclavicular: [ No mass or adenopathy.] Heart and great vessels: [ Normal heart size.[ [ No pericardial effusion.] [ No aneurysm.] Chest Wall: [ Unremarkable.] Upper Abdomen: Grossly stable liver lesions dating back to 10/23/2021. Grossly stable bilateral renal lesions dating back to 10/23/2021. There are new too small to characterize low-attenuation lesions in the kidneys. Osseous structures: [ Multilevel degenerative change in the visualized spine.] Additional findings: [ None of significance.] IMPRESSION: 1. Small to moderate-sized patchy and ground glass opacities in the mid and lower lungs. Differential includes but is not limited to edema or pneumonia. Reviewed, dictated and finalized at location Q. IMPRESSION: 1. Small to moderate-sized patchy and ground glass opacities in the mid and low er lungs. Differential includes but is not limited to edema or pneumonia.
--- OUTSIDE RECORDS SUMMARY | 2025-05-11 08:55 | XMS_ITS | Clinical Summary ---
Author Organization [facility] Address [address] [place] [address] Care Team Providers Care Technical Supervisor Name Role Phone Brigido Pineda DO Primary Care Provider Allergies Active Allergy Reactions Criticality Noted Date Comments Adhesive Hives,Rash Medium 06/09/2021 Medications escitalopram (LEXAPRO) 10 mg tabletIndication s:Anxiety with Depression Take 1 tablet (10 mg total) by mouth every morning 02/13/2020 Active finasteride (PROSCAR) 5 mg tabletIndication s:benign prostatic hyperplasia with lower urinary tract sx Take 1 tablet (5 mg total) by mouth nightly 09/30/2021 Active losartan (COZAAR) 50 mg tabletIndication s:hypertension Take 1 tablet (50 mg total) by mouth every morning 09/10/2021 Active cetirizine (ZyrTEC) 10 mg tabletIndication s:Perennial Allergic Rhinitis Take 1 tablet (10 mg total) by mouth every morning Active calcium carbonate/vitami n D3 (CALCIUM 500 + D, D3, ORAL)Indications :OTC/ bones/ immune Take 2 tablets by mouth 2 (two) times a day Active cholecalciferol, vitamin D3, (VITAMIN D3 ORAL)Indications :OTC/ Bones Take 2,000 Units by mouth every morning Active psyllium 0.52 gram capsuleIndicatio ns:constipation Take 1 capsule (0.52 g total) by mouth every morning Active oxyCODONE (ROXICODONE) 5 mg immediate release tabletIndication s:Pain Take 1 tablet (5 mg total) by mouth every 4 (four) hours as needed for pain (Breakthroug h Pain) 30 tablet 05/15/2024 Active traMADoL (ULTRAM) 50 mg tablet Take 1 tablet (50 mg total) by mouth every 8 (eight) hours as needed for pain 42 tablet 05/15/2024 Active acetaminophen (TYLENOL) 500 mg tablet Take 2 tablets (1,000 mg total) by mouth every 8 (eight) hours 90 tablet 1 05/15/2024 Active aspirin 81 mg enteric coated tabletIndication s:prevention of thrombosis Take 1 tablet (81 mg total) by mouth 2 (two) times a day 60 tablet 05/15/2024 Active meloxicam (MOBIC) 7.5 mg tablet Take 1 tablet (7.5 mg total) by mouth daily 30 tablet 05/15/[address] (PROTONIX) 20 mg EC tablet Take 1 tablet (20 mg total) by mouth daily 30 tablet 05/15/2024 Active senna-docusate (Senna-S) 8.6-50 mg Take 2 tablets by mouth 2 (two) times a day 80 tablet 1 05/15/2024 Active Active Problems Problem Noted Date Diagnosed Date Primary localized osteoarthritis of left hip Primary osteoarthritis of right knee 07/23/2021 Elevated BP without diagnosis of hypertension Overview (11/28/2021): Last Assessment & Plan: BP noted to be 150/88 Check b/p 1-2 times per day, low sodium diet 1.5gm per day, aerobic exercise 4-5 times per week, weight control bmi less than 29, limit alcohol intake Monitor BP and call if consistently > 140/90 Other insomnia 09/09/2020 Overview (11/28/2021): Last Assessment & Plan: Continue Trazodone 50 mg qhs Anxiety 09/07/2019 Overview (11/28/2021): Last Assessment & Plan: Stable Continue Lexapro 10 mg 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 Paul (Urologist) in [facility] abnormal 09/14/2017 Overview (11/28/2021): Last Assessment & Plan: Well controlled Pt would like to stop Rosuvastatin and monitor Counseled on diet and exercise Primary osteoarthritis of hip 09/14/2017 Encounters Date Type Department Care Team Description 02/27/2025 8:40 AM CDT Office Visit [facility] ([facility]) - [facility] Medicine ENT [address] [place] [address] [place] [address] Kumar Brock MD Closed fracture of right coronoid process of mandible, initial encounter ([facility]) (Primary Dx); Closed fracture of right zygomatic arch (HCC); Facial pain; Facial numbness; Closed fracture of zygomaticomaxillary complex, initial encounter ([facility]) 02/26/2025 Telephone [facility] Medicine Otolaryngology [address], [place] [id number] Yadi Weems MS from Last 3 Months Immunizations Immunization Administration Dates Next Due Influenza, Quad, Adjuvantate d, Intramuscular 04/04/2020 Influenza, Quadrivalent, Lorenza l Culture-based MDCK, Preservative Free, Antibiotic Free, Intramuscular 05/04/2019 Influenza, Quadrivalent, Hig h Dose, Preservative Free, Intrr 04/30/2021 Influenza, Trivalent, High D ose, Split, Preservative Free, Intramuscular 05/18/2018,04/28/2017,04/29/2016,05/23 Influenza, Trivalent, IM (MDV) 06/19/2014,2012,05/17/2012 Moderna SARS-CoV-2 Monovalen t Vaccination (12+ YRS) 09/19/2020,08/24/2020 Pneumococcal Conjugate PCV 13 06/23/2019 Td, adsorbed 10/13/2007 Tdap 03/03/2017 ZOSTER LIVE 04/29/2016 ZOSTER Recombinant 04/04/2020,05/04/2019 Surgical History Surgery Date Site/Laterality Comments SPINAL FUSION 07/19/1963 - 07/18/1964 HIP ARTHROPLASTY 07/19/2011 - 07/18/2012 Right JOINT REPLACEMENT 06/09 knwee arthroplasty VASECTOMY Medical History Medical History Date Comments Hypertension Family History Medical History Relation Name Comments Anesthesia problems Neg Hx Social History Tobacco Use Types Packs/Day Years Used Date Smoking Tobacco: Never Cigarettes Smokeless Tobacco: Never Tobacco Cessation:Counseling Given: Not Answered AUDIT-C Answer Date Recorded Q1: How often do you have a drink containing alc ohol? Monthly or less 05/15/2024 Q2: How many drinks containi ng alcohol do you have on a typical day when you are drinking? 1 or 2 05/15/2024 Q3: How often do you have si x or more drinks on one occasion? Never 05/15/2024 Personal Safety Answer Date Recorded Have you ever been in or are you currently in a harmful physical or emotional relationship or is someone making you feel afraid or unsafe? 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 Gender Identity Not on file Sexual Orientation Not on file Obstetrics History Last Filed Vital Signs Vital Sign Reading Time Taken Comments Blood Pressure 129/54 05/16/2024 7:52 AM CDT Pulse 62 05/16/2024 7:52 AM CDT Temperature 36.4 C (97.6 F) 05/16/2024 7:52 AM CDT Respiratory Rate 18 05/16/2024 7:52 AM CDT Oxygen Saturation 94% 05/16/2024 7:52 AM CDT Inhaled Oxygen Concentration - - Weight 108.9 kg (240 lb) 02/27/2025 8:54 AM CDT Height 182.9 cm (6') 02/27/2025 8:54 AM CDT Body Mass Index 32.55 02/27/2025 8:54 AM CDT Plan of Treatment Health Maintenance Due Date Last Done Comments Depression Screening 1945 Hepatitis C Screening 1945 Hepatitis B Screening 1965 Well Visit 65+ 2012 Pneumococcal vaccine 65+ (2 of 2 - PCV20 or PCV21) 06/23/2020 06/23/2019 Covid-19 Vaccine (6 - 2024-2 6 season) 2025 05/26/2021, 09/19/2020, 09/19/2020, Additional history exists Influenza Vaccine (#1) 2025 , 04/04/2020, 05/04/2019, Additional history exists Fall Risk Assessment 05/16/2025 05/16/2024 DTaP/Tdap/Td Vaccine (2 - Td or Tdap) 03/03/2027 03/03/2017, 10/13/2007 Zoster Vaccine Completed 04/04/2020, 04/18, 04/29/2016 Medical Devices Implanted Type Area Abstractor Device Identifier Shelf Expiration Date Model / Serial / Lot [employer] Simplex P Full Dose Radiopaque Preblend Cement Bone Tobramycin 6197-9-010 - Sna - [id number] Implanted:Qty: 1 on 06/15/2022 by Nikolay Schmidt MD at [facility] Bone Cement Right: Knee [employer] 10/17/2023 6197-9-010 / NA / [id number] [employer] Simplex P Full Dose Radiopaque Preblend Cement Bone Tobramycin 6197-9-010 - Sna - [id number] Implanted:Qty: 1 on 06/15/2022 by Nikolay Schmidt MD at [facility] Bone Cement Right: Knee [employer] 10/17/2023 6197-9-010 / NA / [id number] [employer] Simplex P Full Dose Radiopaque Preblend Cement Bone Tobramycin 6197-9-010 - Sna - [id number] Implanted:Qty: 1 on 06/15/2022 by Nikolay Schmidt MD at [facility] Bone Cement Right: Knee [employer] 10/17/2023 6197-9-010 / NA / [id number] [employer] Attune Cemented Cruciate Retaining Knee Right 9 Component Femoral [id number] - Sna - [id number] Implanted:Qty: 1 on 06/15/2022 by Nikolay Schmidt MD at [facility] Other - see comments Right: Knee [employer] [id number] 01/16/2032 [id number] / NA / [id number] Description:Implant Pause Pe rformed [employer] Attune S+ Cement Fix Bearing Knee 8 Baseplate Tibial [id number] - Sna - [id number] Implanted:Qty: 1 on 06/15/2022 by Nikolay Schmidt MD at [facility] Other - see comments Right: Knee [employer] [id number] 04/17/2032 [id number] / NA / [id number] Description:Implant Pause Pe rformed [employer] Attune 5mm Cruciate Retaining Fix Bearing Knee 9 Insert Tibial [id number] - Sna - [id number] Implanted:Qty: 1 on 06/15/2022 by Nikolay Schmidt MD at [facility] Other - see comments Right: Knee [employer] [id number] 04/17/2027 [id number] / NA / [id number] Description:Implant Pause Pe rformed Hip Right: Hip [employer] Shell Acetabular Emsys Shl Mlthole 54 [id number] - [id number] Implanted:Qty: 1 on 05/15/2024 at [facility] Left: Hip [employer] 01/15/2034 [id number] / / [id number] [employer] [place] 6.5mm 20mm Acetabular Cancellous Screw Bone Sterile 1217--500 - [id number] Implanted:Qty: 1 on 05/15/2024 at [facility] Left: Hip [employer] 01/15/2034 1217--500 / / [id number] [employer] [place] 6.5mm 30mm Acetabular Cancellous Screw Bone Revision 1217 - [id number] Implanted:Qty: 1 on 05/15/2024 at [facility] Left: Hip [employer] 02/15/2034 1217-30-500 / / [id number] [employer] Liner Acetabular Emsys Lnr Aox N 54x40 [id number] - [id number] Implanted:Qty: 1 on 05/15/2024 at [facility] Left: Hip [employer] 02/15/2029 [id number] / / [id number] [employer] Actis Collar Hip 9 High Offset Stem Femoral [id number] - [id number] Implanted:Qty: 1 on 05/15/2024 at [facility] Left: Hip [employer] 01/15/2033 [id number] / / [id number] [employer] Articul/Ludwig 40mm Sleeve Hip +8.5mm 12/14 Taper Head Femoral Latex Free [id number] - [id number] Implanted:Qty: 1 on 05/15/2024 at [facility] Left: Hip [employer] 02/15/2029 [id number] / / [id number] Insurance MEDICARE [facility] MEDICARE [facility] PPO Advance Directives For more information, please contact: [phone] * Full Code (Latest Code Status on File) Date Activated Date Inactivated Comments 05/15/2024 12:43 PM 05/16/2024 3:28 PM * Full Code Date Activated Date Inactivated Comments 06/15/2022 12:35 PM 06/16/2022 7:13 PM Care Teams Technical Supervisor Relationship Specialty Start Date End Date Brigido Pineda DO PCP - General Internal Medicine 11/28/21
== END 2025-05-11 08:48 | disposition home or self-care (01) ==
PROVIDERS: PCP Nurse Practitioner; Visit Provider Nurse Practitioner
DX: R91.8 Other nonspecific abnormal finding of lung field (principal); R93.89 Abnormal findings on diagnostic imaging of other specified body structures
CPT/HCPCS: 71260; Q9967

== ENCOUNTER 2025-06-13 09:13 | Outpatient (CLI) | payer MEDICARE, OTHER, SELFPAY ==
--- NOTE | ~2025-06-13 | XR_ITS ---
XR chest 2V 06/13/2025 09:23 Indication: Shortness of breath. Recent fall. Procedure: 2 view chest Comparison: No prior studies for comparison. Findings: Heart size normal. Bibasilar atelectasis. No focal pneumonia, edema or effusion. No pneumothorax. Impression: 1: Bibasilar atelectasis. Reviewed, dictated and finalized at location O. E [employer]IN[employer] Impression: 1: Bibasilar atelectasis.
== END 2025-06-13 09:14 | disposition home or self-care (01) ==
LOC: GOSHIMG 09:14
PROVIDERS: PCP Nurse Practitioner; Visit Provider Nurse Practitioner
DX: J98.11 Atelectasis (principal); S22.39XD Fracture of one rib, unspecified side, subsequent encounter for fracture with routine healing; W19.XXXD Unspecified fall, subsequent encounter; X58.XXXD Exposure to other specified factors, subsequent encounter
CPT/HCPCS: 71046